=== PATIENT | female | born 1985 | race Caucasian/White ===

== ENCOUNTER 2019-08-25 18:33 | Emergency (ER) | payer BC ==
--- NOTE | 2019-08-25 19:19 | UC ---
Respiratory Complaint HPI - HPI Summary HPI Summary: 34 yo women c/o cough with tightness in her breathing x 5 days, worsening. Cough is worse at night. Denies fevers, headache, diarrhea. - History of Current Complaint Chief Complaint: UCRespiratory Stated Complaint: COUGH,SOB Hx Obtained From: Patient ?: No Onset/Duration: Sudden Onset, Lasting Days - 5, Worse Since - last night Timing: Constant Pain Intensity: 3 Character: Cough: Nonproductive Aggravating Factors: Deep Breaths, Recumbent Position Alleviating Factors: Nothing Associated Signs And Symptoms: Positive: Dyspnea, Pleuritic Chest Pain - just with coughing, Wheezing, URI. Negative: Fever, Chills, Hemoptysis, Dizziness, Edema, Nasal Congestion, Sinus Discomfort Related History: Seasonal Allergies - Allergies/Home Medications Allergies/Adverse Reactions: Allergies Allergy/AdvReac Type Severity Reaction Status Date / Time aspirin Allergy Nausea Verified 08/25/19 18:58 Home Medications: Home Medications predniSONE 20 mg TAB [Deltasone 20 MG TAB*] 60 mg PO DAILY #18 tab 08/25/19 [Rx] PMH/Surg Hx/FS Hx/Imm Hx Cardiovascular History: Hypertension - Surgical History Surgical History: Yes Surgery Procedure, Year, and Place: C-sections x2 - Family History Known Family History: Positive: Hypertension, Diabetes - Social History Occupation: Employed Full-time Lives: With Family Alcohol Use: None Substance Use Type: None Smoking Status (MU): Never Smoked Tobacco Review of Systems All Other Systems Reviewed And Are Negative: Yes Respiratory: Positive: Shortness Of Breath, Cough Cardiovascular: Positive: Chest Pain Physical Exam Triage Information Reviewed: Yes Appearance: Ill-Appearing - mild, Pain Distress - just with coughing, Obese Vital Signs Reviewed: Yes Eyes: Positive: Conjunctiva Clear ENT: Positive: Pharynx normal, Nasal congestion - with allergic changes, TMs normal Neck exam: Normal Respiratory: Positive: Wheezing - diffuse expiratory wheeze with coughing. Cardiovascular Exam: Normal Musculoskeletal Exam: Normal Neurological Exam: Normal Psychological Exam: Normal Skin Exam: Normal Respiratory Course/Dx - Course Course Of Treatment: Discussed with patient, doesn't fit criteria for covid testing. Appears to be just simple URI with bronchospasm. - Differential Dx/Diagnosis Differential Diagnosis/HQI/PQRI: Asthma, Bronchitis, Lower Resp Infection, Sinusitis Provider Diagnosis: Upper respiratory infection, Acute bronchospasm Discharge ED - Sign-Out/Discharge Documenting (check all that apply): Patient Departure All imaging exams completed and their final reports reviewed: No Studies - Discharge Plan Condition: Stable Disposition: HOME Prescriptions: predniSONE 20 mg TAB [Deltasone 20 MG TAB*] 60 mg PO DAILY #18 tab Patient Education Materials: Upper Respiratory Infection (ED), Bronchospasm (ED ) Forms: *Work Release Referrals: Marianela Kebede MD [Primary Care Provider] - - Billing Disposition and Condition Condition: STABLE Disposition: Home
[2019-08-25 19:22] VITALS: BP 141/80
[2019-08-25] MEDS ORDERED: Albuterol HFA INHALER* 8 gm MDI INH ONE (19:26)
== END 2019-08-25 19:42 | disposition home or self-care (01) ==
LOC: UCCORT 18:33
DX: J06.9 Acute upper respiratory infection, unspecified (principal); J98.01 Acute bronchospasm; R07.2 Precordial pain; Z88.6 Allergy status to analgesic agent
CPT/HCPCS: 99212; A9270-GY; G0463; J7512